=== PATIENT | male | born 1940 | race Caucasian/White ===

== ENCOUNTER 2018-07-04 12:19 | Emergency (ER) | payer MEDICARE, OTHER, SELFPAY ==
[2018-07-04 12:24] VITALS: BP 158/88; PULSE 65; RESP 15; TEMP 36.7; O2SAT 97; BMI 29.6
--- NOTE | 2018-07-04 12:31 | DI.RAD.S_ITS ---
PROCEDURE: XR HIP W PEL IF DONE LT 2V INDICATIONS: pain hip replacement TECHNIQUE: AP pelvis with lateral view(s) of the left hip(s). COMPARISON: None. FINDINGS: Bones: No fractures or dislocations. Pelvic ring appears intact. No suspicious bony lesions. Left hip arthroplasty is present. Hardware appears intact without dislocation. The left ramus is suboptimally evaluated secondary to patient rotation. Degenerative changes are noted within the right hip. Soft tissues: The visualized bowel gas pattern is normal. No suspicious soft tissue calcifications. IMPRESSION: Suboptimal evaluation of the pubic ramus secondary to patient positioning. Repeat is recommended if concern for fracture is present in this area. Otherwise, no visualized acute fracture or dislocation. However, if clinical concern and/or pain persist, short interval imaging followup in 7-10 days is recommended, as occult injury cannot be definitively excluded. Dictated by: Kathia Wagner M.D. on 07/04/2018 at 12:10 Approved by: Kathia Wagner M.D. on 07/04/2018 at 12:12
--- NOTE | 2018-07-04 12:39 | PC.NURSE ---
s/p fall on stairs on the last step. c/o L hip joint pain and has prosthetic from the past. +CMS intact on L foot. pt c/o L hip pain increases with elevation on L leg. Pt denies any other injuries.
--- NOTE | 2018-07-04 13:17 | ED.FALL ---
HPI - Fall General Chief Complaint: Fall Stated Complaint: GLF Time Seen by Provider: 07/04/18 12:31 Source: patient and EMS Mode of arrival: EMS Limitations: no limitations History of Present Illness HPI Narrative: Patient is an 78-year-old male who presents with left hip pain. He wound was walking and missed a step fell on the left side. He has a history of left hip arthroplasty. He denies numbness or tingling. He is on Coumadin he denies hitting his head or any loss consciousness. He says that he was able to stand but walking was difficult. Certain movements are quite painful. Legs are equal length. complaint: fall Related Data Previous Rx's Medication Instructions Recorded hydrocodone-acetaminophen [[place]] 1 tab PO Q6H PRN #10 tab 07/04/18 Allergies Allergy/AdvReac Type Severity Reaction Status Date / Time No Known Drug Allergies Allergy Verified 07/04/18 14:21 Review of Systems Review of Systems GENERAL: Denies chills,fever HEENT: Denies throat pain RESPIRATORY: Denies dyspnea, cough, wheezing CARDIOVASCULAR: Denies chest pain, palpitations GASTROINTESTINAL: Denies nausea, vomiting MUSCULOSKELETAL: See HPI SKIN: No rash, no laceration, no pruritus NEUROLOGIC: Denies weakness, dizziness, headache, numbness 8 point review of systems is negative except for those stated above and HPI Exam Initial Vital Signs Initial Vital Signs: Vital Signs Temperature 98.1 F 07/04/18 12:24 Pulse Rate 65 07/04/18 12:24 Respiratory Rate 15 07/04/18 12:24 Blood Pressure 158/88 H 07/04/18 12:24 Pulse Oximetry 97 07/04/18 12:24 GENERAL: Alert well-appearing elderly mail HEENT: Head atraumatic,EOMI, pupils reactive, face symmetric, CARDIOVASCULAR: Regular rate and rhythm without murmurs, rubs or gallops. RESPIRATORY: Breath sounds equal bilaterally, no wheezes rales or rhonchi. ABDOMEN: Soft, nontender. Normoactive bowel sounds all 4 quadrants. No guarding or rebound. EXTREMITIES: Normal range of motion, no clubbing or edema. Neurovascularly intact Pelvis is stable legs of equal length distal pedal pulses intact. Pain with left hip internal and external rotation. Neurovascularly intact NEUROLOGICAL: Alert and oriented x4.Normal gait and speech. SKIN: Warm, dry, no laceration, no petechiae, no rashes or lesions. PFSH Medical History Hyperlipidemia (Acute) Hypertension (Acute) Social History Smoking Status: Former smoker Course Orders Ordered: ED Orders 07/04/18 12:31 XR hip w pel if done LT 2V Stat 07/04/18 13:23 XR pelvis 1-2V Stat Discontinued Medications Hydrocodone Bitart/Acetaminophen ([place] 5/325) 1 tab PO NOW ONE Stop: 07/04/18 14:09 Last Admin: 07/04/18 14:22 Dose: 1 tab Vital Signs - 8 hr 07/04/18 12:24 07/04/18 13:55 Temperature 98.1 F Pulse Rate 65 66 Respiratory Rate 15 16 Blood Pressure 158/88 H Blood Pressure [Right Arm] 142/65 H Pulse Oximetry 97 95 MDM - Fall Imaging Data left hip: Radiologist's impression: PROCEDURE: XR HIP W PEL IF DONE LT 2V INDICATIONS: pain hip replacement TECHNIQUE: AP pelvis with lateral view(s) of the left hip(s). COMPARISON: None. FINDINGS: Bones: No fractures or dislocations. Pelvic ring appears intact. No suspicious bony lesions. Left hip arthroplasty is present. Hardware appears intact without dislocation. The left ramus is suboptimally evaluated secondary to patient rotation. Degenerative changes are noted within the right hip. Soft tissues: The visualized bowel gas pattern is normal. No suspicious soft tissue calcifications. IMPRESSION: Suboptimal evaluation of the pubic ramus secondary to patient positioning. Repeat is recommended if concern for fracture is present in this area. Otherwise, no visualized acute fracture or dislocation. However, if clinical concern and/or pain persist, short interval imaging followup in 7-10 days is recommended, as occult injury cannot be definitively excluded. Dictated by: Kathia Wagner M.D. on 07/04/2018 at 12:10 pelvis: Radiologist's impression: PROCEDURE: XR PELVIS 1-2V INDICATIONS: ? rami fracture TECHNIQUE: 1 view(s) of the pelvis acquired. [facility], 07/[facility]/2018, 12:17. FINDINGS: Bones: No fractures or dislocations. No suspicious bony lesions. Left hip arthroplasty is present. The left pubic rami are better evaluated and no discrete fracture is clearly identified. Soft tissues: Visualized bowel gas pattern is normal. No suspicious soft tissue calcifications. IMPRESSION: No visualized acute fracture or dislocation. However, if clinical concern and/or pain persist, short interval imaging followup in 7-10 days is recommended, as occult injury cannot be definitively excluded. Dictated by: Kathia Wagner M.D. on 07/04/2018 at 12:41 MDM Narrative Medical decision making narrative: Patient is ambulatory with a walker. He was seen stand would. I have discussed radiological results with him initially possible pubic rami fracture. Repositioning of patient does not reveal any fracture. This is typically a nonsurgical fracture even if it is present. He is discharged home with pain medication and a walker and he is also given a disc of images. Discharge Plan Departure Patient Disposition: Home Clinical Impression: Acute hip pain Discharge Date/Time: 07/04/18 14:29 Interventions: ED Discharge Assessment Last Done: 07/04/18 14:29 Instructions: Pelvic Fracture Activity Restrictions/Additional Instructions: *You have been diagnosed with left hip pain *What to do: Initial x-ray did show questionable fracture however repeat x-ray did not show a fracture. Recommend walking with walker as tolerated. Pain control. Follow up closely with her primary physician *Continue to take medications as directed [place] 1 tablet every 6 hr if needed for severe pain *Follow up with your primary care provider in 2-3 days *Return to ER if you should have inability to walk, it numbness, tingling, weakness or any new, worsening or concerning symptoms CONTROLLED SUBSTANCE DISCHARGE (Narcotoic/benzodiazepine/Flexeril/Phenergan) 1. You have been prescribed narcotic medications, it does have acetaminophen/Tylenol/paracetamol in it so do not take extra Tylenol or Tylenol containing products 2. Please understand that we cannot provide further refills of narcotics, benzodiazepines or controlled substances through the ED and her pain management will need to be through your provider. 3. While on these medications you cannot drive or operate heavy machinery. 4. You cannot sign legal documents or perform any duties such as this. 5. As long as you're taking opiate pain medications he should also be taking a stool softener such as Colace, Dulcolax, MiraLAX or prune juice, to help avoid constipation. Prescriptions: New hydrocodone-acetaminophen [[place]] 5-325 mg tablet 1 tab PO Q6H PRN (Reason: pain) Qty: 10 RF: 0
--- NOTE | 2018-07-04 13:23 | DI.RAD.S_ITS ---
PROCEDURE: XR PELVIS 1-2V INDICATIONS: ? rami fracture TECHNIQUE: 1 view(s) of the pelvis acquired. COMPARISON: [facility], [facility], XR HIP W PEL IF DONE LT 2V, 07/04/2018, 12:17. FINDINGS: Bones: No fractures or dislocations. No suspicious bony lesions. Left hip arthroplasty is present. The left pubic rami are better evaluated and no discrete fracture is clearly identified. Soft tissues: Visualized bowel gas pattern is normal. No suspicious soft tissue calcifications. IMPRESSION: No visualized acute fracture or dislocation. However, if clinical concern and/or pain persist, short interval imaging followup in 7-10 days is recommended, as occult injury cannot be definitively excluded. Dictated by: Kathia Wagner M.D. on 07/04/2018 at 12:41 Approved by: Kathia Wagner M.D. on 07/04/2018 at 12:42
[2018-07-04 13:55] VITALS: BP 142/65; PULSE 66; RESP 16; O2SAT 95
--- NOTE | 2018-07-04 13:59 | PC.NURSE ---
Pt was able to ambulate with a walker from room 3 to nursing [facility] and back to bed with a stand by assistance. Pt reports pain increases with wt bearing but tolerated the ambulation. Walker not readily available at home since it's in storage unit.
[2018-07-04] MEDS: HYDROCODONE/ACET 5/325 TABLET 1 TAB PO (14:22)
== END 2018-07-04 14:29 | disposition home or self-care (01) ==
PROVIDERS: Emergency Provider Emergency Medicine
DX: M25.552 Pain in left hip (principal)
CPT/HCPCS: 72170; 73502; 99282; 99283